=== PATIENT | female | born 1970 | race African-American/Black ===

== ENCOUNTER 2018-09-11 15:09 | Emergency (ER) | payer BC ==
--- NOTE | 2018-09-11 15:18 | UC ---
Eye Complaint HPI - HPI Summary HPI Summary: 48 yo female presents with RIGHT eye redness and pain. She tells me that last night while at work she developed some right eye pain and clear drainage. This morning she woke up and her eye was stuck shut. Her pain is significantly worse and redness has increased. Vision is very blurry. 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 She uses cocept eye drops from Dr. Aguilar for her glaucoma. She had a headache earlier today, but no longer. She is photosensitive. No dizziness, SOB , chest pain, n/v. - History of Current Complaint Stated Complaint: EYE ISSUE Time Seen by Provider: 09/11/18 15:17 Hx Obtained From: Patient Onset/Duration: Sudden Onset Severity Initially: Moderate Severity Currently: Moderate Pain Intensity: 5 Pain Scale Used: 0-10 Numeric - Allergies/Home Medications Allergies/Adverse Reactions: Allergies Allergy/AdvReac Type Severity Reaction Status Date / Time No Known Allergies Allergy Verified 09/11/18 15:20 Home Medications: Home Medications Dorzolamide/Timolol/Pf [Cosopt Pf Eye Drops] 1 ml BOTH EYES DAILY WITH MEAL 06/21 [History Confirmed 09/11/18] PMH/Surg Hx/FS Hx/Imm Hx - Additional Past Medical History Additional PMH: Glaucoma right eye - Surgical History Surgical History: None - Family History Known Family History: Positive: Hypertension - Social History Occupation: Employed Full-time Lives: With Family Alcohol Use: Occasionally Substance Use Type: None Smoking Status (MU): Light Every Day Tobacco Smoker Review of Systems All Other Systems Reviewed And Are Negative: Yes Constitutional: Positive: Negative Skin: Positive: Negative Eyes: Positive: Drainage, Eye Redness ENT: Positive: Negative Respiratory: Positive: Negative Cardiovascular: Positive: Negative Neurovascular: Positive: Negative Neurological: Positive: Negative Psychological: Positive: Negative Physical Exam - Summary Physical Exam Summary: GENERAL: WDWN. No pain distress. SKIN: No rashes, sores, lesions, or open wounds. HEENT: Head: AT/NC Eyes: EOM intact. PERRLA. RIGHT EYE: Mild proptosis. Mild firmness on palpation. Moderate scleral injection. Conjunctiva with mild erythema and inflammation. Mild clear discharge. With right eye closed and left eye constriction there is no pain in the RIGHT eye. Nose: NTTP maxillary and frontal sinus. NECK: Supple. Nontender. No lymphadenopathy. CHEST: No accessory muscle use. Breathing comfortably and in no distress. CV: Pulses intact. Cap refill <2seconds NEURO: Alert. PSYCH: Age appropriate behavior. Triage Information Reviewed: Yes Vital Signs: Vital Signs: Temp Pulse Resp BP Pulse Ox 98.7 F 82 18 140/85 100 09/11/18 15:16 09/11/18 15:16 09/11/18 15:16 09/11/18 15:16 09/11/18 15:16 Vital Signs Reviewed: Yes Eye Complaint Course/Dx - Course Course Of Treatment: Tetracaine instilled with no relief. 1550 spoke with on- call at Dr. Aguilar's office (Dr. Bertrand) and discussed case. She advised to continue glaucoma eye drops and try saline eye drops. Will f/u with pt in office tomorrow. Discussed this with pt and she was agreeable to plan. Advised that if her pain worsens or if she develops a severe headache to go to the ED. - Differential Dx/Diagnosis Provider Diagnosis: Pain, eye, right, Ocular proptosis Discharge - Sign-Out/Discharge Documenting (check all that apply): Patient Departure All imaging exams completed and their final reports reviewed: No Studies - Discharge Plan Condition: Stable Disposition: HOME Forms: *Work Release Referrals: Jose Guadalupe Martinez MD [Primary Care Provider] - Jose Guadalupe gAuilar MD [Medical Doctor] - 1 Day Additional Instructions: If you develop a fever, shortness of breath, chest pain, new or worsening symptoms - please call your PCP or go to the ED. Your blood pressure was high at todays visit. Please see your primary provider within 4 weeks for recheck and re-evaluation. 1) I spoke with Dr. Banuelos's on-call service today and they recommended to continue your Cocept eye drops and use saline eye drops (provided to you today) and they will see you in the office tomorrow. Please call their office in the morning to schedule an appointment - Billing Disposition and Condition Condition: STABLE Disposition: Home
[2018-09-11 15:20] VITALS: BP 140/85
[2018-09-11] MEDS ORDERED: Tetracaine 0.5% OPTH.SOL 4 ML* 1 DROP BTL RIGHT EYE ONE (15:31)
[2018-09-11] MEDS ORDERED: Eye Irrigation Solution 30 ML BOTTLE RIGHT EYE ONE (15:55)
== END 2018-09-11 16:00 | disposition home or self-care (01) ==
LOC: UCEAST 15:09
DX: H57.11 Ocular pain, right eye (principal); H05.241 Constant exophthalmos, right eye; F17.200 Nicotine dependence, unspecified, uncomplicated
CPT/HCPCS: 99202; A9270-GY; G0463

== ENCOUNTER 2018-11-26 22:41 | Emergency (ER) | payer BC ==
--- NOTE | 2018-11-26 22:57 | ED ---
Head Injury - HPI Summary HPI Summary: Pt is a 48 y/o female brought in by EMS who presents to the ED s/p head injury. She was drinking alcohol tonight and hit her head after falling. Pt is not sure how the injury occurred or where she hit her head. She denies any LOC. She denies any current pain. Pt is tearful in the room. Pt denies any smoking or drug use. 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, Still Present Severity Currently: None Pain Intensity: 0 Pain Scale Used: 0-10 Numeric Associated Signs And Symptoms: Negative - Allergies/Home Medications Allergies/Adverse Reactions: Allergies Allergy/AdvReac Type Severity Reaction Status Date / Time No Known Allergies Allergy Verified 09/11/18 15:20 PMH/Surg Hx/FS Hx/Imm Hx Endocrine/Hematology History: Denies: Hx Diabetes, Hx Thyroid Disease Cardiovascular History: Denies: Hx Hypertension Respiratory History: Denies: Hx Asthma, Hx Chronic Obstructive Pulmonary Disease (COPD) GI History: Denies: Hx Ulcer Sensory History: Reports: Hx Glaucoma, Hx Legally Blind - right eye Psychiatric History: Reports: Hx Depression Infectious Disease History: Denies: Hx Hepatitis, Hx Human Immunodeficiency Virus (HIV) - Family History Known Family History: Positive: Hypertension - Social History Alcohol Use: Occasionally Hx Substance Use: No Substance Use Type: Reports: None Hx Tobacco Use: Yes Smoking Status (MU): Light Every Day Tobacco Smoker Review of Systems Negative: Myalgia - head Positive: Other - Tearful All Other Systems Reviewed And Are Negative: Yes Physical Exam - Summary Physical Exam Summary: Appearance: Well appearing, no pain distress Skin: warm, dry, reflects adequate perfusion Head/face: normal, skull is atraumatic Eyes: EOMI, proptosis of right eye, bilateral injected conjunctiva, right pupil non-reactive to light ENT: mucous membranes moist Neck: supple, non-tender Respiratory: CTA, breath sounds present Cardiovascular: RRR, pulses symmetrical Abdomen: non-tender, soft Bowel Sounds: present Musculoskeletal: normal, strength/ROM intact Neuro: normal, sensory motor intact, A&Ox3 GCS: 15 Triage Information Reviewed: Yes Vital Signs Reviewed: Yes Diagnostics - Laboratory Lab Statement: Any lab studies that have been ordered have been reviewed, and results considered in the medical decision making process. - CT Brain CT CT Interpretation Completed By: Radiologist Summary of CT Findings: No acute intracranial abnormality. Chronic microvascular ischemic changes. ED physician reviewed radiology report. Re-Evaluation - Re-Evaluation First Eval Re-Evaluation Time: 12:15 Change: Unchanged Comment: Pt is able to ambulate without difficulty. Head Injury Course/Dx Course Of Treatment: Nurse's notes reviewed. Patient with head injury from fall. She had been drinking heavily. She is alert and oriented at present. There is no external evidence of injury on the skull. Head CT negative. Discharged in the care of her mother with safe ride. She demonstrates clear speech, steady gait at this point. - Diagnoses Differential Diagnosis/HQI/PQRI: Concussion With LOC, Concussion Without LOC, Intracranial Bleed Provider Diagnoses: Alcohol intoxication, Closed head injury without loss of consciousness Discharge - Sign-Out/Discharge Documenting (check all that apply): Patient Departure - Discharge Patient Received Moderate/Deep Sedation with Procedure: No - Discharge Plan Condition: Improved Disposition: HOME Patient Education Materials: Head Injury (ED), Alcohol Intoxication (ED) Referrals: Jose Guadalupe Martinez MD [Primary Care Provider] - Additional Instructions: Return with severe headache, repetitive vomiting, alteration in consciousness, worse, new symptoms or other concerns. Never drink alcohol to excess. Do not drive throughout the day today. - Billing Disposition and Condition Condition: IMPROVED Disposition: Home - Attestation Statements Document Initiated by Scribe: Yes Documenting Scribe: Aracelis Salazar Provider For Whom Joseibmanolo is Documenting (Include Credential): Riaz Dudley MD Scribe Attestation: Aracelis Perez scribed for Riaz Dudley MD on 11/27/18 at 0514. Scribe Documentation Reviewed: Yes Provider Attestation: The documentation as recorded by the Aracelis flores accurately reflects the service I personally performed and the decisions made by , Riaz Dudley MD Status of Scribe Document: Viewed
[2018-11-27 00:36] VITALS: BP 137/82
== END 2018-11-27 00:20 | disposition home or self-care (01) ==
LOC: ED 22:41
DX: S09.90XA Unspecified injury of head, initial encounter (principal); F10.129 Alcohol abuse with intoxication, unspecified; W19.XXXA Unspecified fall, initial encounter; Y92.9 Unspecified place or not applicable; F32.9 Major depressive disorder, single episode, unspecified; F17.210 Nicotine dependence, cigarettes, uncomplicated
CPT/HCPCS: 70450; 99282